=== PATIENT | male | born 1960 | race Caucasian/White ===

== ENCOUNTER 2020-11-29 00:15 | Day surgery (SDC) | payer OTHER, SELFPAY ==
[2020-11-13 13:17] VITALS: BMI 33.9
--- NOTE | 2020-11-29 06:52 | WPDANESEPPF ---
Anes - Initial Pre Proc Eval Procedure: Operation Date: 11/29/20 08:00 Proposed Procedures p Screening Colonoscopy - Wesley Grant MD Date/Time: 11/29/20 06:52 Surgeon: Wesley Grant MD Pre Op Diagnosis: family hx of colon ca, hx of colon polyps, Patient Data Age: 60 Gender: M Height: 1.83 m Weight: 113.5 kg Allergies Allergy/AdvReac Type Severity Reaction Status Date / Time No Known Allergies Allergy Verified 10/16/20 09:33 Home Medications Medication Instructions Recorded Confirmed Type aspirin 81 mg tablet,delayed 81 mg PO DAILY 05/05/19 11/13/20 History release multivitamin 1 tablet PO DAILY 05/05/19 11/13/20 History nabumetone 750 mg tablet 750 mg PO BID #60 tablet 10/17/20 11/13/20 Rx sodium,potassium,mag sulfates 17.5 See Rx Instructions PO .COMPLEX 10/23/20 11/13/20 Rx gram-3.13 gram-1.6 gram oral soln #354 ml Patient hx anesthesia problems: none Family hx anesthesia problems: none PMFSH Past Medical History Medical History Abnormal glucose Chronic pain syndrome Hypercholesterolemia Osteoarthritis of left knee Sleep apnea Family History Family History Father COPD (chronic obstructive pulmonary disease) Other Colon polyp Father Family history of chronic obstructive pulmonary disease Family history of kidney disease Grandparent Carcinoma of colon Other Family history of malignant neoplasm Social History Social History Smoking packs per day: 1 Smoking cigarettes per day: 20.0 Years smoked: 35 Smoking pack-years: 35.00 Smoking status: Former smoker Second hand tobacco smoke exposure: No Smoking end date: 05/17/09 Alcohol intake: current Drinks per week: 3 Alcohol use details: occasional/social Substance use: never Substance use type: does not use Living arrangements: with friend(s) Additional living arrangements comments: lives with girlfriend Gender identity (if verbalized by the patient): Male Sexual Orientation (if Verbalized by the Patient): Straight or Heterosexual Spiritual care concerns: No Anes - Eval Final PreProcedure Day of Procedure 11/29/20 06:52 Patient weight: obese Heart: regular rate and rhythm Lungs: decreased breath sounds Airway: Mallampati scale class II Neurological: alert and oriented Last oral intake: >/= 8 hours ASA classification: III Emergent: no Anesthetic plan: proceed Anesthesia type and monitoring: general GIVS and standard monitoring Informed Consent: The patient's anesthetic plan and its attendant risks and benefits were discussed with the patient/family/POA. Questions were solicited and answers provided to the satisfaction of the patient/family/POA.
[2020-11-29 07:08] VITALS: BP 151/85; PULSE 82; RESP 18; TEMP 36.3; O2SAT 95
[2020-11-29 07:10] VITALS: BMI 33.6
[2020-11-29] MEDS: LACTATED RINGERS 1,000 ML 150 ML IV CONT (07:16)
--- NOTE | 2020-11-29 07:53 | WPDGICN ---
Assessment and Plan Assessment and plan (1) Family history of colonic polyps: Code(s): Z83.71 - Family history of colonic polyps Status: Acute Assessment and Plan: Patient has a family history of colon polyps in father and sister but also colon cancer in grandparents. Patient self had colon polyps many years ago. Plan is for screening colonoscopy now on consider this at 5 year intervals in the future. GI Consult Note Consult date/time: 11/29/20 07:53 HPI: Ankit Valenzuela Jr. is a 60 year old male Presents for screening colonoscopy. Patient reports that his current weight appetite bowel movements are normal. He denies abdominal pain. He has had no bleeding. Family history is significant both father and sister have has colon polyps. Grandmother and grandfather on different sides of the family of both had colon cancer. patient himself had colon polyps many years ago. Patient reports that his last colonoscopy was 2010. He presents today for screening colonoscopy. Review of Systems Review of Systems: All systems reviewed & are unremarkable except as noted in HPI and below PMFSH Past Medical History Medical History Abnormal glucose Chronic pain syndrome Hypercholesterolemia Osteoarthritis of left knee Sleep apnea Family History Family History Father COPD (chronic obstructive pulmonary disease) Other Colon polyp Father Family history of chronic obstructive pulmonary disease Family history of kidney disease Grandparent Carcinoma of colon Other Family history of malignant neoplasm Social History Social History Smoking packs per day: 1 Smoking cigarettes per day: 20.0 Years smoked: 35 Smoking pack-years: 35.00 Smoking status: Former smoker Second hand tobacco smoke exposure: No Smoking end date: 05/17/09 Alcohol intake: current Drinks per week: 3 Alcohol use details: occasional/social Substance use: never Substance use type: does not use Living arrangements: with friend(s) Additional living arrangements comments: lives with girlfriend Gender identity (if verbalized by the patient): Male Sexual Orientation (if Verbalized by the Patient): Straight or Heterosexual Spiritual care concerns: No Meds Home Medications and Allergies Home Medications Medication Instructions Recorded Confirmed Type aspirin 81 mg tablet,delayed 81 mg PO DAILY 05/05/19 11/13/20 History release multivitamin 1 tablet PO DAILY 05/05/19 11/13/20 History nabumetone 750 mg tablet 750 mg PO BID #60 tablet 10/17/20 11/13/20 Rx sodium,potassium,mag sulfates 17.5 See Rx Instructions PO .COMPLEX 10/23/20 11/13/20 Rx gram-3.13 gram-1.6 gram oral soln #354 ml Allergies Allergy/AdvReac Type Severity Reaction Status Date / Time No Known Allergies Allergy Verified 11/29/20 07:06 Vital Signs Vital Signs - 24 hr 11/29/20 07:08 Temperature 97.3 F L Pulse Rate 82 Respiratory Rate 18 Blood Pressure 151/85 H Pulse Oximetry 95 Exam Narrative: Exam Narrative: Physical exam reveals patient be alert. Vital signs stable. HEENT exam is unremarkable. Patient is anicteric. Lungs are clear to auscultation and percussion. Heart is without murmur or extra sounds. Abdominal exam bowel sounds are present soft nontender with no organomegaly. Digital external rectal exam is normal.
[2020-11-29 08:21] VITALS: BP 103/64; PULSE 70; RESP 22; O2SAT 96
[2020-11-29 08:31] VITALS: BP 109/65; PULSE 73; RESP 25; O2SAT 99
[2020-11-29 08:41] VITALS: BP 127/86; PULSE 73; RESP 25; O2SAT 96
== END 2020-11-29 08:44 | disposition home or self-care (01) ==
PROVIDERS: PCP Internal Medicine; Visit Provider Internal Medicine Gastroenterology
PROC: 0DJD8ZZ Inspection of Lower Intestinal Tract, Via Natural or Artificial Opening Endoscopic (ICD-10-PCS; CPT 45378; principal; 2020-11-29 08:00)
DX: Z12.11 Encounter for screening for malignant neoplasm of colon (principal); K57.30 Diverticulosis of large intestine without perforation or abscess without bleeding; G89.29 Other chronic pain; E78.00 Pure hypercholesterolemia, unspecified; M17.12 Unilateral primary osteoarthritis, left knee; G47.30 Sleep apnea, unspecified; R73.09 Other abnormal glucose; Z86.010 Personal history of colon polyps; Z80.0 Family history of malignant neoplasm of digestive organs; Z87.891 Personal history of nicotine dependence
CPT/HCPCS: 45378; J2704; J7120

== ENCOUNTER → 2021-01-07 09:09 | Outpatient (CLI) | payer OTHER, SELFPAY ==
--- NOTE | ~2021-01-07 | MR_ITS ---
EXAMINATION: MR knee RT wo con DATE: 01/07/2021 09:51 INDICATION: Right knee pain TECHNIQUE: Magnetic resonance imaging (MRI) of the right knee was performed without intravenous contr ast. Sequences included coronal PD-weighted FSE, coronal PD-weighted FS FSE, sagittal T2-weighted FS E, sagittal PD-weighted FS FSE and axial PD weighted fat saturated FSE. COMPARISON: Right knee radiographs dated 11/15/2020 FINDINGS: Medial compartment: Complex appearing tear involving the inner two thirds of the posterior horn of the medial meniscus. P artial-thickness chondral ulceration and fissuring along the anterior to central weightbearing medial femoral condyle with minimal irregularity to the underlying articular cortex but without degenerativ e subarticular marrow signal changes at the lateral side of the anterior weightbearing medial femoral condyle. Lateral compartment: Complex lateral meniscal tear which includes parrot beak configuration tear planes at both the cement and concrete plant worker ior horn and at the junction of the anterior and posterior horns and an intervening longitudinal hori zontal tear plane extending to the intra-articular surface at the intervening lateral meniscal body. Small region of shallow partial-thickness chondral ulceration with superimposed deep fissuring at the anterior to central weightbearing lateral femoral condyle. Additional deep chondral fissuring with u nderlying regularity to the articular cortex at the posterior weightbearing lateral femoral condyle. Some chondral fissuring along the posterior aspect of the lateral tibial plateau as well as medially along the shoulder the intercondylar eminence. Patellofemoral compartment: Partial-thickness chondral ulceration and deep fissuring along the caudal two thirds of the medial an d lateral patellar facets and intervening apical ridge with mild subarticular edema at the inferior a spect of the lateral facet. Additional less severe partial thickness chondral ulceration across much of the trochlear. Ligaments and tendons: Anterior and posterior cruciate ligaments are normal. The medial collateral ligament and fibular ten ateral ligament complex are normal. Mild to moderate tendinopathy and moderate sized enthesophytes at the patellar insertion of the distal quadriceps tendon. Mild proximal patellar tendinopathy. There a re bands of magic angle artifact at the distal patellar tendon. The visualized medial and lateral ham string tendons as well as the iliotibial band are normal. Fluid: Small right knee joint effusion. No loose osteochondral bodies identified. Osseous/other: Bone alignment is normal. No fracture or pathologic marrow replacing process. IMPRESSION: 1. Complex tear of the posterior horn of the medial meniscus and more diffuse complex tear of the lat eral meniscus. 2. Mild patellofemoral compartment predominant tricompartmental osteoarthritis with regions of modera te to high-grade chondromalacia in all 3 compartments. 3. Small right knee joint effusion. 4. Mild to moderate distal quadriceps enthesopathy. Reviewed, dictated and finalized at location B. IMPRESSION: 1. Complex tear of the posterior horn of the medial meniscus and more diffuse c omplex tear of the lateral meniscus. 2. Mild patellofemoral compartment predominant tricompartmental osteoarthritis with regions of moderate to high-grade chondromalacia in all 3 compartments. 3. Small right knee joint effusion. 4. Mild to moderate distal quadriceps enthesopathy.
== END ==
PROVIDERS: PCP Internal Medicine; Visit Provider Physician Assistant Surgical
DX: M17.11 Unilateral primary osteoarthritis, right knee (principal); M25.461 Effusion, right knee; S83.231A Complex tear of medial meniscus, current injury, right knee, initial encounter; S83.271A Complex tear of lateral meniscus, current injury, right knee, initial encounter; X58.XXXA Exposure to other specified factors, initial encounter
CPT/HCPCS: 73721

== ENCOUNTER 2021-07-15 01:22 | Day surgery (SDC) | payer OTHER, SELFPAY ==
[2021-07-11 10:41] VITALS: BMI 35.2
--- NOTE | 2021-07-11 10:52 | PC.NURSE ---
Report to the Outpatient Waiting Room, entrance under the green pavilion located off [facility], at time 1230 on date 07/15/21. OR Time: 1430. - You and your visitor will be asked a series of questions to screen for COVID 19 for your protection. - A mask is required within the hospital. One visitor will be allowed to accompany the patient into the hospital. Patients visitor will be instructed to remain with patient at all times or leave the building. We will allow the visitor to come back to the postoperative area when patient is ready. Preoperative COVID Testing Requirements: No COVID Test needed if: (proof is required; if not received patient will have Rapid Test prior to entry) - Patient has received COVID Vaccine at least 14 days prior to procedure date or - Patient has positive COVID test result within last 90 days of surgery date. COVID Test needed if above criteria is not met Patients may have clear liquids (water, carbonated beverages, clear teas, apple juice) until 3 hours prior to surgery with a maximum of 20 ounces. - No food from midnight until time of surgery Take the following medications with a SIP of water the morning of surgery: NONE Medications to discontinue per physician: VITAMINS/SUPPLEMENTS Date to take last dose: 07/11/21 STOP ASPIRIN AND NAPROXEN 7 DAYS PRIOR TO PROCEDURE (PER DR. BENÍTEZ) Please no make-up, nail bengali, hairspray, perfume, deodorant, or body powder the day of surgery. No jewelry (including any body piercings) or valuables the day of surgery, leave them at home. Please take a shower or bath the night before, or the morning of, surgery with an antibacterial soap. Wear comfortable, loose fitting clothing. - Jewelry must be removed prior to entering the operating room. Rings and piercings that are not removed may be cut off. - The hospital will not accept responsibility for valuables. - Please leave all valuables, including medications, at home the day of surgery. If you are going home after surgery, a licensed furniture mover driver must drive you home. - NO public transportation without another adult. - We recommend that an adult stay with you for 24 hours following discharge. - We also recommend that you do not drive, make important decision, drink alcoholic beverages, or take any drugs that were not prescribed by your health care provider for at least 24 hours after your discharge time. Follow any additional instructions given to you from your surgeon. Telephone instructions given to RAJI YBARRA and asked if any additional questions and then verbalized understanding. Patient advised to call surgeon office or pre surgery nurse liaison [phone] if any additional questions.
--- NOTE | 2021-07-14 09:36 | P.PNAN_ITS ---
Anes - Initial Pre Proc Eval Procedure: Operation Date: 07/15/21 14:30 Proposed Procedures p Right Knee Arthroscopic, Partial Medial and Lateral Meniscectomy, Proceed As Indicated - Gus Mosley MD Date/Time: 07/14/21 09:36 Surgeon: Gus Mosley MD Pre Op Diagnosis: medial & lateral meniscus tears right knee Patient Data Age: 61 Gender: M Height: 1.83 m Weight: 117.93 kg Allergies Allergy/AdvReac Type Severity Reaction Status Date / Time No Known Allergies Allergy Verified 07/15/21 06:31 Home Medications Medication Instructions Recorded Confirmed Type aspirin 81 mg tablet,delayed 81 mg PO DAILY 05/05/19 07/15/21 History release multivitamin 1 tablet PO DAILY 05/05/19 07/15/21 History glucosamine 750 mg-chondroit 100 1 tablet PO DAILY 07/02/21 07/15/21 History mg-msm-D3 25 gri-eyct-bvn bor tablet naproxen 500 mg tablet 500 mg PO BID 07/02/21 07/15/21 History Patient hx anesthesia problems: post op nausea/vomiting Family hx anesthesia problems: none Results Review: All pre-operative results and documents have been reviewed as part of the pre-operative evaluation. [facility]LY [facility] Past Medical History Medical History Abnormal glucose Chronic pain syndrome Hypercholesterolemia Osteoarthritis of left knee Sleep apnea Family History Family History Father COPD (chronic obstructive pulmonary disease) Other Colon polyp Father Family history of chronic obstructive pulmonary disease Family history of kidney disease Grandparent Carcinoma of colon Other Family history of malignant neoplasm Social History Social History Smoking packs per day: 1.25 Smoking cigarettes per day: 25.0 Years smoked: 35 Smoking pack-years: 43.75 Smoking status: Former smoker Tobacco type: cigarettes Second hand tobacco smoke exposure: No Smoking end date: 05/17/09 Alcohol intake: current Drinks per week: 2 Alcohol use details: occasional/social Substance use: never Substance use type: does not use Living arrangements: with family Additional living arrangements comments: lives with girlfriend Gender identity (if verbalized by the patient): Male Sexual Orientation (if Verbalized by the Patient): Straight or Heterosexual Spiritual care concerns: No Anes - Eval Final PreProcedure Day of Procedure 07/14/21 09:36 Patient weight: obese Heart: regular rate and rhythm Lungs: clear to auscultation and normal air movement Airway: Mallampati scale class III Neurological: alert and oriented Last oral intake: >/= 8 hours ASA classification: III Emergent: no Anesthetic plan: proceed Anesthesia type and monitoring: general LMA and standard monitoring Results Review: All pre-operative results and documents have been reviewed as part of the pre-operative evaluation. Informed Consent: The patient's anesthetic plan and its attendant risks and benefits were discussed with the patient/family/POA. Questions were solicited and answers provided to the satisfaction of the patient/family/POA.
[2021-07-15] VITALS (7 sets, daily range): BP systolic 133–167; BP diastolic 79–89; PULSE 85–100; RESP 14–20; TEMP 36.4–36.7; O2SAT 96–100; BMI 36.3
--- NOTE | 2021-07-15 05:58 | ECG_ITS ---
Measurements Intervals [place] Rate: 76 P: 38 [place]: 168 QRS: 75 QRSD: 150 T: 33 QT: 403 QTc: 455 Interpretive Statements SINUS RHYTHM WITH MARKED SINUS ARRHYTHMIA INTRAVENTRICULAR CONDUCTION DELAY NO PREVIOUS ECG AVAILABLE FOR COMPARISON Electronically Signed On 07-15-2021 12:25:47 UTILITY TECHNICIAN by Gerardo Howard M.D.
[2021-07-15] MEDS: ACETAMINOPHEN 500 MG TABLET 1000 MG PO (06:49)
[2021-07-15] MEDS: LACTATED RINGERS 1,000 ML 30 ML IV CONT (06:49)
[2021-07-15] MEDS: KETOROLAC 15 MG/ML VIAL (*BKC) IV PUSH (06:50)
[2021-07-15] MEDS: SCOPOLAMINE 1.5 MG PATCH TRANSDERM (06:59)
--- NOTE | 2021-07-15 07:26 | WPDHPUPDATE1 ---
History and Physical Update Update Date/Time: 07/15/21 07:26 History and Physical has been reviewed, including an updated exam of the patient. There are NO changes in the patient's condition. Risks, benefits, and alternatives have been discussed and questions answered. Patient agrees to proceed with procedure.
[2021-07-15] MEDS: ceFAZolin 3 GM/D5W 100 ML 100 ML IVPB (07:30)
[2021-07-15] MEDS: BUPIVACAINE/EPINEPHRINE 0.25% 10 ML VIAL 20 ML INFILTRATE (07:47)
--- NOTE | 2021-07-15 08:22 | W.PM.PROC2 ---
Procedure Note - Detailed Date of Procedure 07/15/21 Pre-op Diagnosis medial & lateral meniscus tears right knee Post-op Diagnosis same Procedure Performed Arthroscopic partial medial and lateral meniscectomies, right knee. Surgeon Gus Mosley MD Patent Prosecution Attorney Wendi Lau PA-C Anesthesia general Findings Significant degenerative changes throughout all 3 compartments. Mid grade chondromalacia grade 2/3. Significant tearing in the posterior lateral meniscus. Also mild tearing the inner margin of the medial meniscus. Gentle chondroplasty performed in all 3 compartments along with medial and lateral meniscectomies. Description of Procedure The patient was identified and the surgical site confirmed and signed in the preoperative holding area. Antibiotics were started per protocol. She was brought to the operative room and transferred to the OR table. A general anesthetic was administered. Supine position with the operative lower extremity position in the leg byrne after placement of a well padded tourniquet. The leg support was lowered and the contralateral limb was supported with a soft bolster. The knee was prepped and draped in the usual sterile fashion. A time-out was performed. The portal sites were marked and infiltrated with 0.5% Marcaine 20 mL. The limb was exsanguinated and the tourniquet inflated to 300 mL Hg. Standard inferolateral and inferomedial portals were established. Inflow was obtained with the saline pump. The camera was introduced. Diagnostic inspection of the joint was accomplished. The menisci were debrided with the arthroscopic shaver and punches until stable. The arthroscopic instruments were removed. The tourniquet released and wounds closed with subcutaneous 4-0 Monocryl absorbable suture. Steri strips and a sterile dressing were applied. A light elastic wrap was placed. The patient was extubated and brought to the recovery room in stable condition. Estimated Blood Loss 5 Drains No Complications No immediate complications Condition stable Disposition PACU
== END 2021-07-15 10:00 | disposition home or self-care (01) ==
PROVIDERS: PCP Internal Medicine; Visit Provider Orthopaedic Surgery
PROC: (CPT 29870; principal; 2021-07-15 07:30)
DX: S83.241A Other tear of medial meniscus, current injury, right knee, initial encounter (principal); S83.281A Other tear of lateral meniscus, current injury, right knee, initial encounter; X50.0XXA Overexertion from strenuous movement or load, initial encounter; M94.261 Chondromalacia, right knee; G47.30 Sleep apnea, unspecified; Z79.82 Long term (current) use of aspirin; Z87.891 Personal history of nicotine dependence; E66.9 Obesity, unspecified; Z68.36 Body mass index [BMI] 36.0-36.9, adult
CPT/HCPCS: 29880; 93005; A9270; J0690; J1100; J1885; J2250; J2405; J2704; J3010; J7120